=== PATIENT | female | born 1985 | race Caucasian/White ===

== ENCOUNTER 2016-08-20 15:39 | Emergency (ER) | payer OTHER ==
[~2016-08-20] VITALS: Ht 160 cm; Wt 61.2 kg
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
--- NOTE | 2016-08-20 17:22 | NUR ---
CARLOS CANTU WITH VAGINAL EXAM PT TOLERATED WELL. SAMPLES SENT
--- NOTE | 2016-08-20 17:24 | NUR ---
LINDA, JEWEL OLIVING MACHINE OPERATOR AT BEDSIDE TO TALK TO PT.
[2016-08-20] MEDS ORDERED: CEFTRIAXONE 500 MG VIAL IM ONE (17:30)
[2016-08-20] MEDS ORDERED: AZITHROMYCIN 250 MG TABLET PO ONE (17:30)
[2016-08-20] MEDS ORDERED: AZITHROMYCIN 250 MG TABLET ONE (17:51)
[2016-08-20] MEDS ORDERED: LIDOCAINE HCL 1% 20 ML VIAL ONE (17:52)
[2016-08-20] MEDS ORDERED: CEFTRIAXONE 500 MG VIAL ONE (17:52)
--- NOTE | 2016-08-20 18:00 | NUR ---
[employer] AT [facility]
[2016-08-20 18:03] LABS: *URINE HCG, QUAL NEGATIVE (NEGATIVE)
[2016-08-20 18:04] LABS: *BILIRUBIN,URIN NEGATIVE (NEGATIVE); *BLOOD, URINE 2+ (NEGATIVE); *COLOR,URINE YELLOW (YELLOW); *KETONES,URINE 2+ (NEGATIVE); *PROTEIN,URINE NEGATIVE (NEGATIVE); *UROBILINOGEN,URINE 0.2 E.U./dl (NORMAL); LEUKOCYTE ESTERASE ,URINE TRACE (NEGATIVE); NITRITE, URINE NEGATIVE (NEGATIVE); PH,URINE 5.5 (5.0-8.0); UGLUCOSE NEGATIVE (NEGATIVE)
[2016-08-20 18:14] LABS: *CLARITY,URINE HAZY (CLEAR)
[2016-08-20 18:15] LABS: BACTERIA,URINE MODERATE /HPF (NONE SEEN); MUCUS,URINE MANY /LPF (0-FEW); SQUAMOUS EPITHELIAL CELL,UR FEW /HPF (NONE SEEN); TRICHOMONAS,URINE FEW /HPF (NONE SEEN)
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
--- NOTE | 2016-08-20 19:54 | NUR ---
Patient discharged to [employer] custody in stable conditon. Patient will be transported for further treatment in accordance with [employer] policy/procedure. Patient is understanding of [employer] instructions and agrees with plan. Written and verbal after care instructions given. Patient verbalizes understanding of instructions.
== END 2016-08-20 20:00 | disposition home or self-care (01) ==
LOC: ER 15:40
DX: A59.01 Trichomonal vulvovaginitis (principal); N39.0 Urinary tract infection, site not specified; T74.21XA Adult sexual abuse, confirmed, initial encounter; J45.909 Unspecified asthma, uncomplicated
CPT/HCPCS: 84703; 87081; 87210; 87491; A4663; J0696; J3490; Q0144